=== PATIENT | female | born 1955 | race Caucasian/White ===

== ENCOUNTER 2016-07-25 20:59 | Emergency (ER) | payer OTHER, MEDICAID ==
[2016-07-25 23:38] VITALS: BP 136/76
== END 2016-07-25 23:38 | disposition home or self-care (01) ==
LOC: ED 20:59
DX: M54.5 Low back pain (principal); E11.9 Type 2 diabetes mellitus without complications; G43.909 Migraine, unspecified, not intractable, without status migrainosus; Z88.0 Allergy status to penicillin; Z88.5 Allergy status to narcotic agent